=== PATIENT | female | born 1995 | race Caucasian/White ===

== ENCOUNTER 2017-04-14 19:50 | Emergency (ER) | payer OTHER ==
[~2017-04-14] VITALS: Ht 142.2 cm; Wt 60.8 kg
[~2017-04-14 19:50] MED LIST: KEFLEX500 MG PO; LISINOPRIL20 MG PO; MASON NATURAL325 MG PO; MEDROXYPROGESTE10 MG PO; METFORMIN HCL500 MG PO; MOTRIN 600 MG600 MG PO; PRINIVIL 5MG5 MG PO
--- NOTE | 2017-04-14 21:55 | ED GENERAL ADULT ---
History of Present Illness General Chief Complaint: General Adult Stated Complaint: SUGAR IS 120,INCORRECT DOSE OF INSULIN GIVEN Source: family Exam Limitations: physical impairment Vital Signs & Intake/Output Vital Signs & Intake/Output Vital Signs Date Time Temp Pulse Resp B/P B/P Pulse O2 O2 Flow FiO2 Mean Ox Delivery Rate 04/14 2249 97.6 96 16 133/73 98 Room Air 04/145 98.7 112 18 124/81 98 Room Air ED Intake and Output 04/15 0000 04/14 1200 Intake Total 0 Output Total Balance 0 Intake, Oral 0 Patient 134 lb Weight Weight Reported by Patient Measurement Method Allergies Uncoded Allergies: SEASONAL ALLERGIES (SNEEZING, CONGESTION, RUNNY NOSE, WATERY EYES 11/02/14) Reconcile Medications Cephalexin (Keflex) 500 MG CAP 1 CAP PO TID uti Ferrous Sulfate 325 MG (65 MG IRON) TABLET 0.5 TAB PO BID ANEMIA (Reported) Ibuprofen (Motrin 600 MG Tab) 600 MG TAB 1 TAB PO Q6P PRN fever Lisinopril 20 MG TABLET 1 TAB PO QAM BP (Reported) Lisinopril (Prinivil) 5 MG TABLET 1 TAB PO DAILY BP (Reported) Medroxyprogesterone Acetate 10 MG TAB 1 TAB PO PRN MENSTRUATION (Reported) Metformin Hydrochloride (Metformin HCl) 500 MG TAB 1 TAB PO BID DIABETES ( Reported) Triage Note: PT FROM HOME C/O IMPROPER DOSE OF INSULIN. PER PTS MOTHER , PTS FATHER GAVE PT 27 UNITS OF HUMALOG TONIGHT AROUND 1800, PT NO LONGER TAKES HUMALOG PT IS ON METFORMIN AND TRICEVA. PTS VSS. PT ACTING APPROPRIATE FOR BASELINE. PTS BS IM TRIAGE 289, PTS MOTHER PROVIDED PT CRACKERS, JUICE AND MILK PRIOR TO ARRIVAL IN FEAR THAT PTS BS WOULD DROP DRAMACTICALLY. PTS MOTHER STATES AT HOME PTS BS WAS DROPPING BY 20 POINTS EVERY 10 MINS. Triage Nurses Notes Reviewed? yes Onset: Abrupt Duration: constant Timing: single episode today Injury Environment: home Severity: moderate : No Patient currently breastfeeds: No HPI: Patient is a 21-year-old female with a past medical history of developmental delay and type 2 diabetes and hypothyroidism in which family members present with patient for concerns of accidentally administering subcutaneous 27 units of Humalog at approximately 6 PM this evening. Patient usually is administered her dosing of metformin and TRICEBA at dinnertime however this medication was not administered today. Family members begin checking fingerstick blood sugar readings every 10-15 minutes and noted to be 160-120 and which they began endorsing crackers and food to combat the suspecting drop in blood sugar. History is limited due to patient's past medical history and developmental delay No vomiting has occurred patient is acting at baseline per family members Past History Travel History Traveled to [place] past 21 day No Medical History Any Pertinent Medical History? 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 No Review of Systems Review of Systems Constitutional: Reports: no symptoms. EENTM: Reports: no symptoms. Respiratory: Reports: no symptoms. Cardiovascular: Reports: no symptoms. GI: Reports: no symptoms. Genitourinary: Reports: no symptoms. Musculoskeletal: Reports: no symptoms. Skin: Reports: no symptoms. Neurological/Psychological: Reports: no symptoms. Hematologic/Endocrine: Reports: no symptoms. Immunologic/Allergic: Reports: no symptoms. All Other Systems: Reviewed and Negative Physical Exam Physical Exam General Appearance: no apparent distress, alert Head: atraumatic Eyes: Bilateral: normal appearance. Ears, Nose, Throat: hearing grossly normal Neck: normal inspection Respiratory: no respiratory distress Cardiovascular: regular rate/rhythm Peripheral Pulses: 2+ radial (R) Gastrointestinal: normal bowel sounds, soft, non-tender Extremities: normal inspection, normal capillary refill, no edema Skin: intact, normal color, warm/dry Core Measures ACS in differential dx? No CVA/TIA Diagnosis: No Sepsis Present: No Sepsis Focused Exam Completed? No Progress Differential Diagnoses I considered the following diagnoses in my evaluation of the patient: [ Hyperglycemia hypoglycemia] Plan of Care: Orders Procedure Date/time Status FingerStick- Glucose 04/14 2254 Active FingerStick- Glucose 04/14 2155 Active After initial examination patient's last glucose was noted to be 284 at 2040 Patient resting comfortable at bedside Endocrinology was paged REPEAT BLOOD SUGAR [phone] marin who advised the patient after midnight tonight WHICH WILL BE 6 hours after onset of the administration 27 units will be stable for discharge in which I advised parents to not administered any diabetic medications tonight and to continue normal pharmacy protocol tomorrow and continue blood sugar monitoring as directed 2300- BS NOTED 182 0000- BS NOTED 156 Discussed disposition plan with family members who agree and have no questions. Initial ED EKG: none Departure Departure Disposition: HOME OR SELF CARE Condition: Stable Clinical Impression Primary Impression: Hyperglycemia Referrals: Chaim DUMONT,Jimenez Pulido (PCP/Family) Additional Instructions: As discussed continue your blood sugar monitoring as directed and RESTART YOUR blood sugar medications tomorrow as directed and follow-up with your manager city as directed if symptoms worsen return to emergency room Departure Forms: Customer Survey General Discharge Information Critical Care Note Critical Care Note Critical Care Time: 30-74 min
[2017-04-15 00:15] VITALS: BP 134/78
== END 2017-04-15 00:16 ==
LOC: ERH 19:50
DX: E11.65 Type 2 diabetes mellitus with hyperglycemia (principal); Z79.4 Long term (current) use of insulin